=== PATIENT | male | born 1940 | race Caucasian/White ===

== ENCOUNTER 2016-09-06 09:56 | Emergency (ER) | payer MEDICARE ==
[~2016-09-06] VITALS: Ht 172.7 cm; Wt 91.6 kg
[2016-09-06] MEDS ORDERED: [UNRECOGNIZED DRUG - REMARK] PO (10:09)
[2016-09-06] MEDS ORDERED: POLY2.5S OD (10:09)
[2016-09-06] MEDS ORDERED: FLUORESCEIN OPHTH 1 MG STRIP OD ONE (10:45)
[2016-09-06] MEDS ORDERED: TETRACAINE 0.5% OPHTH SOLN 4ML OD ONE (10:45)
[2016-09-06 11:08] VITALS: BP 165/85
== END 2016-09-06 11:12 | disposition home or self-care (01) ==
LOC: M ED 10:32
DX: T15.01XA Foreign body in cornea, right eye, initial encounter (principal)